=== PATIENT | female | born 1970 | race Caucasian/White ===

== ENCOUNTER 2017-06-01 08:45 | Day surgery (SDC) | payer BC ==
[2017-06-01] VITALS (12 sets, daily range): BP systolic 110–146; BP diastolic 58–78; PULSE 53–78; RESP 16–21; Ht 154.9 cm; Wt 69.8 kg
[~2017-06-01] VITALS: Ht 154.9 cm; Wt 69.8 kg
--- NOTE | 2017-06-01 09:21 | HPN ---
Date/Time of Note Date/Time of Note DATE: 06/01/17 TIME: 09:21 Interval H&P Admission Note Pt. seen H&P reviewed: No system changes CHRIS JULES MD Jun 01, 2017 09:21
[2017-06-01] MEDS ORDERED: BUPIVACAINE 0.5%/EPI (SDV) 30 ML INJ ONE (09:38)
[2017-06-01] MEDS ORDERED: LIDOCAINE 1% (MPF) 30 ML INJ ONE (09:38)
[2017-06-01] MEDS ORDERED: METOCLOPRAMIDE 10 MG INJ ONE (09:58)
[2017-06-01] MEDS ORDERED: ONDANSETRON 4 MG INJ ONE (09:58)
[2017-06-01] MEDS ORDERED: LIDOCAINE 2% (SDV) 5 ML INJ ONE (09:58)
[2017-06-01] MEDS ORDERED: MEPERIDINE 100 MG INJ ONE (09:58)
[2017-06-01] MEDS ORDERED: PROPOFOL 20 ML ONE (09:58)
[2017-06-01] MEDS ORDERED: CEFAZOLIN 1 GM INJ ONE (10:03)
[2017-06-01] MEDS ORDERED: BUPIVACAINE 0.5%/EPI (SDV) 30 ML INJ INJ ONE (10:28)
[2017-06-01] MEDS ORDERED: LIDOCAINE 1% (MDV) 50 ML INJ INJ ONE (10:28)
--- NOTE | 2017-06-01 10:34 | OPR ---
Date/Time of Note Date/Time of Note DATE: 06/01/17 TIME: 10:31 Operative Report Procedure Date: Jun 01, 2017 Preoperative Diagnosis 5 cm subcutaneous lipoma left chest Postoperative Diagnosis 5 cm subcutaneous lipoma left chest Operation/Procedure Performed Excision Surgeon Chris Jules MD [facility] Department Supervisor None Anesthesia Type: general Anesthesiologist: SWATI ARTHUR MD Estimated Blood Loss: 0 - 10 ml's Transfusion none Specimen Lipoma Grafts/Implants none Tubes/Drains None Complications none Pt Condition Post Procedure: stable Disposition: PACU Indications Enlargement Procedure Description After satisfactory general anesthesia was achieved the left chest was prepped and draped. A 5 cm transverse skin incision was made in the left anterior axillary line just lateral to the left breast. The mass was entirely lipomatous and subcutaneous. It was dissected from surrounding tissues in its entirety using electrocautery dissection. The specimen was submitted intact. The wound was infiltrated with 20 cc of 0.5% Marcaine with epinephrine. The subcu was closed with interrupted 3-0 Vicryl suture and skin closed with running 3-0 subcuticular Vicryl. Sponge and needle counts were reported as correct 2. CHRIS JULES MD Jun 01, 2017 10:34
[2017-06-01] MEDS ORDERED: OXYCODONE/ACETAMINOPHEN (5/325) TAB PO PRN ×2 (11:00)
[2017-06-01] MEDS ORDERED: morphine 2 MG INJ IV PRN (11:00)
[2017-06-01] MEDS ORDERED: ONDANSETRON 4 MG INJ IV PRN (11:00)
== END 2017-06-01 12:19 | disposition home or self-care (01) ==
LOC: SDS 08:45
PROVIDERS: ATTEND Surgery
DX: D17.1 Benign lipomatous neoplasm of skin and subcutaneous tissue of trunk (principal); E66.3 Overweight
CPT/HCPCS: 21552; 88307; J0690; J2175; J2270; J2405; J2765; Z7512; Z7610